=== PATIENT | male | born 1975 | race Caucasian/White ===

== ENCOUNTER 2025-10-09 08:07 | Outpatient (REF) | payer OTHER, SELFPAY ==
[2025-10-09 13:15] LABS: Appearance Urine Turbid; Glucose Urine UA Negative (Negative); PH 5.5 (5.0-9.0); Specific Gravity - Urine >= 1.030 (1.005-1.025)
[2025-10-09 13:19] LABS: MANUAL DIFF FLAG NO
[2025-10-09 13:25] LABS: Hematocrit 40.7 % (42.0-52.0); Hemoglobin 14.1 g/dl (14.0-18.0); Imm Gran Abs Auto 0.05 X10*3/uL (0.00-0.03); Imm Gran Pct Auto 0.4 % (0.0-0.4); Lymphocytes Absolute Auto 2.5 X10*3/uL (1.2-4.9); Mean Corpuscular HGB Conc 34.6 g/dl (31.0-36.0); Mean Corpuscular Hemoglobin 29.2 pg (27.0-33.0); Mean Corpuscular Volume 84.3 fL (80.0-98.0); NRBC Abs Auto 0.000 X10*3/uL (0.0-0.012); NRBC Pct Auto 0.0 /100WBC (0.0-0.2); Platelet Count 278 X10*3/uL (160-400); Red Blood Count 4.83 X10*6/uL (4.60-5.80); White Blood Count 13.7 X10*3/uL (4.8-10.8)
[2025-10-09 13:49] LABS: Alanine Aminotransferase 23 U/L (0-40); Albumin Level 4.9 g/dL (3.5-5.0); Alkaline Phosphatase 53 U/L (39-117); Anion Gap 15 (12-20); Aspartate Amino Transferase 31 U/L (5-37); Blood Urea Nitrogen 17 mg/dL (9-16); Calcium 9.6 mg/dL (8.4-10.2); Carbon Dioxide 28 mmol/L (22-29); Chloride 103 mmol/L (96-108); Cholesterol 212 mg/dL (<200); Estimated Glomerular Filt Rate > 60; HDL Cholesterol 52 mg/dL (>40); Magnesium 2.4 mg/dL (1.6-2.6); Potassium 3.9 mmol/L (3.3-5.1); Sodium 142 mmol/L (135-145); Total Protein 7.9 g/dL (6.5-8.0); Triglycerides 91 mg/dL (<150)
[2025-10-09 14:17] LABS: Folate 7.0 ng/mL (> or = 4.0); Vitamin B12 229 pg/mL (200-900)
[2025-10-10 08:51] LABS: HBS Num1 0.00 mIU/mL (0-7.99); HBsAGNum1 0.70 S/CO (0.00-0.99); HIV Num 1 0.06 S/CO (0.00-0.99); Hepatitis B Surface Antigen Negative (Negative); ~HepC Num1 0.21 S/CO (0.00-0.79); ~Hepatitis B Surface Antibody NONREACTIVE (Nonreactive); ~Hepatitis C Antibody Nonreactive (Nonreactive)
[2025-10-15 05:44] LABS: VITAMIN D (1,25 OH) D3 44 pg/mL; Vit D (1,25-Dihydroxy) Total 44 pg/mL (18-72); Vitamin D (1,25 OH) D2 <8 pg/mL
[2025-10-20 15:49] LABS: Testosterone, Free 35.5 pg/mL (35.0-155.0)
== END 2025-10-09 08:08 | disposition home or self-care (01) ==
LOC: HO.HKASLDS 08:07
PROVIDERS: PCP Student in an Organized Health Care Education/Training Program; Visit Provider Student in an Organized Health Care Education/Training Program
DX: F11.11 Opioid abuse, in remission (principal); R53.83 Other fatigue; G47.00 Insomnia, unspecified; R01.1 Cardiac murmur, unspecified; F41.9 Anxiety disorder, unspecified; F32.A Depression, unspecified; Z91.89 Other specified personal risk factors, not elsewhere classified; Z28.21 Immunization not carried out because of patient refusal
CPT/HCPCS: 36415; 80053; 80061; 81003; 82607; 82652; 82746; 83036; 83735; 84402; 84403; 84443; 85025; 86706; 86803; 87340; 87389

== ENCOUNTER 2025-10-09 08:07 | Outpatient (AMB) | payer OTHER, SELFPAY ==
--- NOTE | 2025-10-09 08:15 | MHC.PC.OV ---
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 Accompanied by: Self / Same As Patient Allergies No Known Allergies Allergy (Verified 10/09/25 08:15) Medication List - Last Reconciled 10/09/25 by Randy Napier MD clonidine HCl 0.1 mg PO BID hydroxyzine HCl 25 mg PO TID ibuprofen 600 mg PO TID methadone 80 mg PO DAILY naloxone 4 mg/actuation intranasal sertraline 75 mg PO DAILY trazodone 100 mg PO BEDTIME PRN Tobacco use date assessed: 10/09/25 Dental Screening Dental Screen Date: 10/09/25 Did you have a dental visit in the last 12 months?: Yes Was dental information given to patient?: Patient has dentist HPI HPI Comments History of Present Illness Details History of Present Illness The patient is a 50 year old individual presenting to counts include 234 beds at the [facility] primary care. Opioid Use Disorder: The patient has a history of fentanyl use and was started on methadone 80 mg approximately six months ago. The patient reports one prior overdose event and possesses naloxone. The methadone initially caused constipation, which has since mostly resolved. Fatigue: The patient reports a lack of energy for the last six to seven months, which coincides with the initiation of methadone treatment. The patient notes being athletic in the past, but no longer feels this way. Psychiatric History: The patient has a psychiatric history of depression and anxiety, managed by a psychiatrist. The patient takes sertraline for depression, and clonidine and hydroxyzine for anxiety. Insomnia: The patient takes trazodone for sleep but reports sleeping for only four or five hours at a time. The patient usually wakes to use the bathroom and then it takes about an hour to fall back asleep. Heart Murmur: The patient has been told about having a heart murmur previously. About five months ago, the patient was seen at a hospital overnight for chest pains, and an echocardiogram at that time was reportedly normal. The patient's father has a history of an aortic aneurysm that required surgical repair and valve replacement. Health Maintenance: The patient is 50 years old and has not had a colonoscopy or other colon cancer screening. The last visit with a primary care provider was three or four years ago. Surgical History: - The patient denies any past surgeries. 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 - Substance Use: The patient denies current use of cigarettes, marijuana, alcohol, or other illicit drugs. - Activity Level: The patient reports being athletic in the past but now experiences a lack of energy. Family History: - Father: History of an aortic aneurysm requiring surgical repair with valve replacement. - Diabetes: There is a family history of diabetes. Diagnostic Results: - Echocardiogram: Reportedly performed at [facility] five months ago for chest pains and was said to be normal. - Physical Exam: A brief physical performed at [facility] reportedly showed nothing wrong. Past Medical History - Opioid use disorder with history of fentanyl use - History of one overdose - Depression - Anxiety - The patient has not seen a primary care provider for three to four years. - Hospitalization for chest pains approximately five months ago. Health Maintenance - Will order a Cologuard test for colon cancer screening, as the patient is 50 and has not been screened. - Ordered comprehensive baseline labs including a complete blood count, comprehensive metabolic panel, hemoglobin A1c, lipid panel, magnesium, thyroid studies, hepatitis B and C, HIV, vitamin B12, folate, and vitamin D. [facility] Medical History (Updated 10/09/25 @ 08:46 by Randy Napier MD) Anxiety and depression Fatigue Methadone use History of drug overdose History of opioid abuse Heart murmur Family History (Updated 10/09/25 @ 08:16 by Kathy Ndiaye CMA) Mother No problems noted. Father No problems noted. Social History Housing: Other Housing Other:: recovery house Patient Tobacco Use Status: Never used Tobacco e-Cigarette/Vaping Use: Never Used service: No Current occupational status: unemployed Cognitive needs: No Hearing needs: No Vision needs: No Questionnaire PHQ-9 Over the last 2 weeks, how often have you been bothered by any of the following problems? 1. Little interest or pleasure in doing things: several days 2. Feeling down, depressed, or hopeless: several days 3. Trouble falling or staying asleep, or sleeping too much: several days 4. Feeling tired or having little energy: several days 5. Poor appetite or overeating: several days 6. Feeling bad about yourself - or that you are a failure or have let yourself or your family down: several days 7. Trouble concentrating on things, such as reading the newspaper or watching television: several days 8. Moving or speaking so slowly that other people could have noticed. Or the opposite - being so fidgety or restless that you have been moving around a lot more than usual: not at all 9. Thoughts that you would be better off or of hurting yourself in some way: not at all Total score: 7 Depression Screening Interpretation: Positive Depression Screening Done: Yes Source: Developed by Drs. Zion Reid, Maribell Eddy, Gopi Hernandez and colleagues, with an educational lalito from [employer]. Thrive Questionnaire Date Thrive assessed: 10/09/25 I am a: Patient What is your living situation today?: I have a place to live, but I am worried about losing it in the future Within the past 12 months, did the food you bought not last and you didn't have the money to get more?: Sometimes True Within the past 12 months, did you worry whether your food would run out before you got money to buy more?: Sometimes True Do you have trouble paying for medicines?: No Do you have trouble getting transportation to medical appointments?: No Do you have trouble paying your heating and electricity bill?: No Do you have trouble taking care of your child, family member or friend?: No Do you have trouble with day-to-day activities such as bathing, preparing meals, shopping, managing finances, etc.?: No Are you currently unemployed and looking for a job?: Yes Are you interested in more education?: No Please select the resources that you would like help with: Housing/Nursing Home Currently or been in a relationship where the following occur: No concerns reported THRIVE Score: 3 AUDIT C Alcohol Use Questionnaire (AUDIT-C) 1. How often do you have a drink containing alcohol?: Monthly or less 2. How many drinks containing alcohol do you have on a typical day when you are drinking?: 1 or 2 Total Score: 1 JAKE-7 AMB Questionnaire JAKE-7 Date JAKE - 7 assessed: 10/09/25 Feeling nervous, anxious, or on edge: 0 = Not at all Not being able to stop or control worryin = Not at all Worrying too much about different things: 0 = Not at all Trouble relaxin = Not at all Being so restless that it is hard to sit still: 0 = Not at all Becoming easily annoyed or irritable: 0 = Not at all Feeling afraid as if something awful might happen: 0 = Not at all Total JAKE-7 score (0-4 normal; 5-9 mild; 10-14 moderate; 15-21 severe): 0 Source: Developed by Drs. Zion Reid, Maribell Eddy, Gopi Hernandez and colleagues, with an educational lalito from [employer]. Review of Systems Narrative Review of Systems - Constitutional: Reports lack of energy for the past 6-7 months. - Cardiovascular: Denies current chest pains, but reports an episode of chest pains 5 months ago. - Psychiatric: Reports history of depression and anxiety. - Neurological: Reports sleep disturbance, gets 4-5 hours of sleep, with nocturia and difficulty returning to sleep. - Gastrointestinal: Denies current constipation but notes it occurred initially with methadone. - Integumentary: Reports having multiple birthmarks all over the body. - All other systems reviewed and are negative. 10-point ROS reviewed and negative except as noted in HPI Physical exam (Primary Care) Vital Signs: Last Vital Signs Temp 98.3 F 10/09/25 08:20 Pulse 69 10/09/25 08:20 BP 127/86 10/09/25 08:20 Pulse Ox 95 10/09/25 08:20 Oxygen Delivery Method Room Air 10/09/25 08:20 BMI result Body Mass Index 29.5 Tobacco/Smoking Status: Tobacco use Status Tobacco use date assessed 10/09/25 10/09/25 08:16 Patient Tobacco Use Status Never used Tobacco 10/09/25 08:16 e-Cigarette/Vaping Use Never Used 10/09/25 08:16 PHQ-9: PHQ-9 Score PHQ-9: Total score 7 10/09/25 08:26 Depression Screening Interpretation: Positive Thrive Assessment: Date of Thrive Assessment Date Thrive assessed 10/09/25 10/09/25 08:16 Currently or been in a relationship where the following occur: No concerns reported Narrative Physical Exam General: Well-appearing, in no acute distress. Vital signs: Within normal limits. HEENT: Normocephalic, atraumatic. PERRLA, EOMI. Conjunctiva clear, sclera anicteric. Oropharynx clear, mucous membranes moist. TMs intact bilaterally. Neck: Supple, no lymphadenopathy, no thyromegaly, no JVD or carotid bruits. Cardiovascular: RRR, normal S1/S2, heart murmur noted. Peripheral pulses 2+ and symmetric. No edema. Respiratory: Lungs clear to auscultation bilaterally, no wheezes, rales, or rhonchi. Normal effort. Abdomen: Soft, non-tender, non-distended. Normoactive bowel sounds. No hepatosplenomegaly, no masses. MSK: Full range of motion, no joint swelling or deformity. Normal gait. Skin: Warm, dry, intact. Multiple birthmarks noted, no rashes, lesions, or pallor. No signs of skin cancer. Neuro: Alert and oriented x3. Cranial nerves II-XII intact. Strength 5/5 throughout. Sensation intact. Reflexes 2+ symmetric. Normal coordination and gait. Psych: Appropriate mood and affect. Normal judgment and insight. Office Procedures Flu Questionnaire Does the patient have a severe egg allergy?: No Does the patient have severe life threatening allergies?: No Does the patient have a fever or illness today?: No Has the patient ever had Guillain-Napoleon Syndrome?: No Has the patient ever had any past reaction to a flu shot?: No Immunizations Fluarix [id number] (PF) 45 mcg (15 mcg x 3)/0.5 mL IM syringe Performing Provider: Randy Napier MD Performing Location: [facility] Documented (not given) by: Kathy Ndiaye CMA on 10/09/25 08:29 Reason Not Given: Patient Refused Coding Level of Care Code New Pt Level 4 (86690) Diagnoses Heart murmur R01.1 History of opioid abuse F11.11 History of drug overdose Z91.89 Methadone use F11.90 Fatigue R53.83 Anxiety and depression F41.9; F32.A Assessment & Plan Assessment & Plan (1) Heart murmur: Code(s): R01.1 - Cardiac murmur, unspecified Category: Medical (2) History of opioid abuse: Code(s): F11.11 - Opioid abuse, in remission Category: Medical (3) History of drug overdose: Code(s): Z91.89 - Other specified personal risk factors, not elsewhere classified Category: Medical (4) Methadone use: Code(s): F11.90 - Opioid use, unspecified, uncomplicated Category: Medical (5) Fatigue: Code(s): R53.83 - Other fatigue Category: Medical (6) Anxiety and depression: Code(s): F41.9 - Anxiety disorder, unspecified; F32.A - Depression, unspecified Category: Medical Plan Consent The options for colon cancer screening were discussed with the patient, including a colonoscopy which involves a bowel prep and sedation, versus a Cologuard test which is a non-invasive stool-based test performed at home and is valid for three years. The patient provided verbal consent to proceed with the Cologuard test. Patient was informed and verbally consented to the use of an ambient scribe for clinic note documentation during this visit. Plan 1. Fatigue - To evaluate the patient's complaint of lack of energy, which started around the same time as methadone initiation, testosterone levels will be checked, as methadone can lower testosterone. - The ordered baseline labs will also help investigate other potential causes such as anemia or vitamin deficiencies. 2. Heart Murmur - Due to the finding of a heart murmur on exam and a family history of aortic aneurysm, an order for an echocardiogram will be placed. - A referral to cardiology will be considered pending the results of the echocardiogram. 3. Opioid Use Disorder, Depression, And Anxiety - The patient will continue the current medication regimen, which includes methadone, sertraline, clonidine, and hydroxyzine, as prescribed by the patient's psychiatrist. - Advised the patient to inform the psychiatrist of the new primary care relationship to facilitate communication. 4. Follow-Up - The patient will follow up in two weeks to discuss the results of the lab work and Cologuard test. Discussion Notes I had a detailed discussion with the patient about an initial health evaluation and establishing care. We reviewed the patient's current medications and history, noting the complaint of fatigue that began around the same time as methadone initiation. I explained that methadone can lower testosterone levels and that we would order lab work, including a testosterone level, to investigate this and other potential causes. I informed the patient of a newly discovered heart murmur and the importance of further evaluation with an echocardiogram, especially given the family history of an aortic aneurysm. We also discussed preventative health, specifically colon cancer screening for a 50-year-old. I explained the options of a colonoscopy versus a Cologuard test, and the patient opted for the Cologuard test. Regarding the multiple nevi, I explained the ugly duckling sign and provided reassurance that they currently appear benign and uniform, while also educating the patient on what to monitor for. A plan was established for comprehensive lab work and a follow-up visit in two weeks to review all results. Patient Instructions - You can have your blood work done here in the clinic today. - You will receive a Cologuard kit in the mail. Please follow the instructions to collect a stool sample and mail it back. - Someone from [facility] will call you to schedule an echocardiogram (a test to look at your heart). - Please let your psychiatrist know that I am your new primary care doctor so we can coordinate your care. - Keep an eye on the birthmarks on your skin. Look for any that look different from the others, as this could be a sign of a problem. - Please schedule a follow-up appointment in two weeks to go over your test results. Medical Decision Making The patient is a 50-year-old individual presenting to counts include 234 beds at the [facility] care with a complex medical and psychiatric history. The primary active complaints are fatigue and sleep disturbance. The fatigue, which began concurrently with methadone treatment six months ago, raises suspicion for medication side effects, specifically hypogonadism, as methadone is known to lower testosterone levels. A comprehensive lab panel, including testosterone, CBC, CMP, and vitamin levels, was ordered to evaluate for this and other common etiologies of fatigue like anemia or nutritional deficiencies. The most significant new finding on physical exam is a heart murmur. Given the patient's paternal history of an aortic aneurysm requiring surgical repair and the patient's own history of chest pain, further cardiac evaluation is warranted. An echocardiogram was ordered to assess cardiac structure and function and rule out significant valvulopathy or other abnormalities; a cardiology consultation will be considered based on these results. For health maintenance, the patient is due for colon cancer screening. After discussing the risks and benefits of both colonoscopy and a stool-based test, the patient elected to proceed with Cologuard. The patient's psychiatric conditions are managed by a psychiatrist, and care will be coordinated with that provider. A follow-up visit is scheduled in two weeks to review all diagnostic findings and formulate a continuing plan of care. Total Time Statement 30 min Total time spent caring for the patient today includes pre-visit chart review, documentation, review of laboratory and diagnostic imaging results, medication reconciliation, medically necessary evaluation, counseling on diagnoses, care coordination, ordering appropriate tests and medications, review of tests performed by other providers, reporting test results to the patient, and communication with other healthcare providers. Orders: Orders Influenza [id number] Immunization Today Z23 - Encounter for immunization Complete Blood Count Auto Diff Today Z13.9 - Encounter for screening, unspecified Hepatitis B Surface Antigen Today Z13.9 - Encounter for screening, unspecified HIV Ab/Ag Today Z13.9 - Encounter for screening, unspecified UA CC w/rflx Micro + Cult Today Z13.9 - Encounter for screening, unspecified Lipid Panel Today Z13.9 - Encounter for screening, unspecified Hemoglobin A1c Today Z13.9 - Encounter for screening, unspecified Magnesium Today Z13.9 - Encounter for screening, unspecified Comprehensive Met. Panel Today Z13.9 - Encounter for screening, unspecified Hepatitis C Antibody Today Z13.9 - Encounter for screening, unspecified TSH reflex Free T4 Today Z13.9 - Encounter for screening, unspecified Vitamin B12 and Folate Today Z13.9 - Encounter for screening, unspecified Vitamin D 1,25 dihydroxy Today Z13.9 - Encounter for screening, unspecified Hepatitis B Surface Antibody Today Z13.9 - Encounter for screening, unspecified Testosterone, Free/Total Today Z13.9 - Encounter for screening, unspecified CA echo transthoracic complete Today R01.1 - Cardiac murmur, unspecified Referrals Cologuard Test Z12.11 - Encounter for screening for malignant neoplasm of colon, Z12.12 - Encounter for screening for malignant neoplasm of rectum
[2025-10-09 08:20] VITALS: BP 127/86; PULSE 69; TEMP 36.8; O2SAT 95; BMI 29.5
== END 2025-10-09 08:46 | disposition home or self-care (01) ==
LOC: HO.HMCFMS 08:07
PROVIDERS: PCP Family Medicine; Visit Provider Student in an Organized Health Care Education/Training Program
DX: R01.1 Cardiac murmur, unspecified (principal); F11.11 Opioid abuse, in remission; Z91.89 Other specified personal risk factors, not elsewhere classified; F11.90 Opioid use, unspecified, uncomplicated; R53.83 Other fatigue; F41.9 Anxiety disorder, unspecified; F32.A Depression, unspecified; Z23 Encounter for immunization

== ENCOUNTER 2025-10-27 08:22 | Outpatient (AMB) | payer OTHER, SELFPAY ==
[2025-10-27 08:43] VITALS: BP 119/71; PULSE 50; RESP 16; TEMP 37.3; O2SAT 96; BMI 29.3
--- NOTE | 2025-10-27 08:43 | A.OFFPC_ITS ---
Vital Signs 10/27/25 08:43 Height 5 ft 10.35 in Weight 206 lb 6 oz BMI 29.3 BP 119/71 Blood Pressure Location Rt brachial Position Sitting Respiration 16 Pulse 50 Pulse Source Pulse Oximeter Temp 99.1 F Temp Source Oral Pulse Oximetry (%) 96 Oxygen Delivery Method Room Air Intake Visit Reasons: 2 wk - lab review Allergies No Known Allergies Allergy (Verified 10/27/25 08:45) Medication List - Last Reconciled 10/27/25 by Randy Napier MD clonidine HCl 0.1 mg PO BID hydroxyzine HCl 25 mg PO TID ibuprofen 600 mg PO TID mecobalamin (vitamin B12) 1,000 mcg sublingual BEDTIME methadone 80 mg PO DAILY naloxone 4 mg/actuation intranasal sertraline 75 mg PO DAILY trazodone 100 mg PO BEDTIME PRN Tobacco use date assessed: 10/27/25 Dental Screening Dental Screen Date: 10/09/25 HPI HPI Comments History of Present Illness Details History of Present Illness The patient is a 50 year old male presenting for a follow-up visit to discuss laboratory results. Vitamin B12 deficiency: The patient's recent lab results show a vitamin B12 level of 229, which is at the low end of the normal range of 200-700. This is thought to be the cause of his symptoms of fatigue and tiredness. His diet is noted to be low in green vegetables which may contribute to his low B12 level. Hypercholesterolemia: A non-fasting lipid panel revealed a total cholesterol of 212 mg/dL (normal <200) and an LDL cholesterol of 142 mg/dL (normal <100). The patient's diet reportedly includes egg yolks and cheese, which may contribute to elevated cholesterol levels. Heart murmur: The patient has a previously identified heart murmur and has an echocardiogram scheduled for November 18 to further evaluate it. Colon cancer screening: The patient has been provided a Cologuard test kit for colorectal cancer screening, which he has at home but has not yet completed and mailed back. Social History: - Nutrition: The patient reports a low i ntake of green vegetables like broccoli, spinach, and kale. - He also reports eating foods that can elevate cholesterol, such as egg yolks and cheese. Diagnostic Results: - Labs: - Vitamin B12: 229 (normal range 200-700 ) - Total Cholesterol (non-fasting): 212 m g/dL (target <200) - LDL Cholesterol (non-fasting): 142 mg/ dL (target <100) Past Medical History - Heart murmur Health Maintenance - The Cologuard test for colorectal canc er screening was sent to the patient's home. - The patient was advised to complete an d mail the Cologuard kit. [facility] Medical History (Updated 10/27/25 @ 18:34 by Randy Napier MD) Hypercholesterolemia Low vitamin B12 level Anxiety and depression Fatigue Methadone use History of drug overdose History of opioid abuse Heart murmur Family History (Updated 10/09/25 @ 08:16 by Kathy Ndiaye CMA) Mother No problems noted. Father No problems noted. Social History Housing: Other Housing Other:: recovery house Patient Tobacco Use Status: Never used Tobacco e-Cigarette/Vaping Use: Never Used service: No Current occupational status: unemployed Cognitive needs: No Hearing needs: No Vision needs: No Questionnaire Thrive Questionnaire Date Thrive assessed: 09/21/25 I am a: Patient What is your living situation today?: I have a place to live, but I am worried about losing it in the future Within the past 12 months, did the food you bought not last and you didn't have the money to get more?: Sometimes True Within the past 12 months, did you worry whether your food would run out before you got money to buy more?: Sometimes True Do you have trouble paying for medicines?: No Do you have trouble getting transportation to medical appointments?: No Do you have trouble paying your heating and electricity bill?: No Do you have trouble taking care of your child, family member or friend?: No Do you have trouble with day-to-day activities such as bathing, preparing meals, shopping, managing finances, etc.?: No Are you currently unemployed and looking for a job?: Yes Are you interested in more education?: No Please select the resources that you would like help with: Housing/Fdc Currently or been in a relationship where the following occur: No concerns reported THRIVE Score: 3 JAKE-7 AMB Questionnaire JAKE-7 Date JAKE - 7 assessed: 10/09/25 Source: Developed by Drs. Zion Reid, Maribell Eddy, Gopi Hernandez and colleagues, with an educational lalito from [employer]. Review of Systems Narrative Review of Systems - General: Reports fatigue and tiredness. 10-point ROS reviewed and negative except as noted in HPI Physical exam (Primary Care) Vital Signs: Last Vital Signs Temp 99.1 F 10/27/25 08:43 Pulse 50 10/27/25 08:43 Resp 16 10/27/25 08:43 BP 119/71 10/27/25 08:43 Pulse Ox 96 10/27/25 08:43 Oxygen Delivery Method Room Air 10/27/25 08:43 BMI result Body Mass Index 29.3 Tobacco/Smoking Status: Tobacco use Status Tobacco use date assessed 10/27/25 10/27/25 08:48 Patient Tobacco Use Status Never used Tobacco 10/27/25 08:48 e-Cigarette/Vaping Use Never Used 10/27/25 08:48 Thrive Assessment: Date of Thrive Assessment Date Thrive assessed 09/21/25 10/27/25 08:48 Currently or been in a relationship where the following occur: No concerns reported Narrative Physical Exam General: Well-appearing, in no acute distress. Vital signs: Within normal limits. HEENT: Normocephalic, atraumatic. PERRLA, EOMI. Conjunctiva clear, sclera anicteric. Oropharynx clear, mucous membranes moist. TMs intact bilaterally. Neck: Supple, no lymphadenopathy, no thyromegaly, no JVD or carotid bruits. Cardiovascular: RRR, normal S1/S2, no murmurs, rubs, or gallops. Peripheral pulses 2+ and symmetric. No edema. Scheduled for an echocardiogram for a heart murmur on November 18. Respiratory: Lungs clear to auscultation bilaterally, no wheezes, rales, or rhonchi. Normal effort. Abdomen: Soft, non-tender, non-distended. Normoactive bowel sounds. No hepatosplenomegaly, no masses. MSK: Full range of motion, no joint swelling or deformity. Normal gait. Skin: Warm, dry, intact. No rashes, lesions, or pallor. Neuro: Alert and oriented x3. Cranial nerves II-XII intact. Strength 5/5 throughout. Sensation intact. Reflexes 2+ symmetric. Normal coordination and gait. Psych: Appropriate mood and affect. Normal judgment and insight. Coding Level of Care Code Est Pt Level 3 (31507) Diagnoses Low vitamin B12 level R79.89 Hypercholesterolemia E78.00 Heart murmur R01.1 Fatigue R53.83 Assessment & Plan Assessment & Plan (1) Low vitamin B12 level: Code(s): R79.89 - Other specified abnormal findings of blood chemistry Category: Medical (2) Hypercholesterolemia: Code(s): E78.00 - Pure hypercholesterolemia, unspecified Category: Medical (3) Heart murmur: Code(s): R01.1 - Cardiac murmur, unspecified Category: Medical (4) Fatigue: Code(s): R53.83 - Other fatigue Category: Medical Plan Consent Patient was informed and verbally consented to the use of an ambient scribe for clinic note documentation during this visit. Plan 1. Vitamin B12 Deficiency - The patient's fatigue is attributed to his low vitamin B12 level of 229. - A prescription for vitamin B12 supplementation to be taken nightly has been sent. - Dietary counseling was provided to increase intake of green vegetables like broccoli, spinach, and kale to naturally boost B12 levels. - Plan to recheck vitamin B12 level in three months. 2. Hypercholesterolemia - The patient's non-fasting total cholesterol was 212 and LDL was 142. - It is noted that the non-fasting status likely means his actual values are lower, so there is no immediate concern. - Dietary modification was recommended, specifically reducing consumption of egg yolks and cheese. 3. Heart Murmur - The patient has an echocardiogram scheduled for November 18 for further evaluation. 4. Colon Cancer Screening - Instructed the patient to complete and mail in the at-home Cologuard test kit that was previously sent to him. Discussion Notes I reviewed the patient's recent lab results with him. I explained that his vitamin B12 level is low at 229, and is the likely cause for his reported fatigue. I have sent a prescription for vitamin B12 and advised him to increase his intake of green vegetables. We will recheck his levels in three months. We also discussed his non-fasting cholesterol results, noting his total cholesterol was 212 and LDL was 142. I explained that these values are likely inflated due to the non-fasting state but recommended he reduce his intake of egg yolks and cheese. I reminded him to complete and mail the Cologuard test for colon cancer screening. We confirmed his upcoming echocardiogram appointment on November 18 for his heart murmur. I will see him back in three months for a follow-up. Patient Instructions - Take the prescribed vitamin B12 supplement every night. - Increase your dietary intake of green vegetables such as broccoli, spinach, and kale. - Reduce your consumption of foods high in cholesterol, like egg yolks and cheese. - Complete the Cologuard test from the kit at your house and mail it back as soon as possible. - Attend your scheduled echocardiogram appointment on November 18. - Schedule a follow-up appointment in three months to recheck your lab work. Medical Decision Making The patient, a 50-year-old male, presented to review recent lab results. His primary complaint of fatigue is likely explained by his low-normal vitamin B12 level of 229. I have initiated daily vitamin B12 supplementation and recommended dietary changes to include more green vegetables, with a plan to re-evaluate his B12 level in three months. His non-fasting lipid panel showed a total cholesterol of 212 and LDL of 142. Given the non-fasting state of the sample, I am not concerned at this time and believe his actual values are likely lower. Management will focus on dietary modifications to reduce cholesterol intake, such as limiting egg yolks and cheese. Preventative care was addressed by reminding the patient to complete his Cologuard test. Follow-up for his known heart murmur will proceed with the scheduled echocardiogram. A follow-up visit in three months will serve to reassess his B12 status and overall progress. Total Time Statement 20 min Total time spent caring for the patient today includes pre-visit chart review, documentation, review of laboratory and diagnostic imaging results, medication reconciliation, medically necessary evaluation, counseling on diagnoses, care coordination, ordering appropriate tests and medications, review of tests performed by other providers, reporting test results to the patient, and communication with other healthcare providers. Medications: New mecobalamin (vitamin B12) place tablet under tongue and allow to dissolve for at least30 secs before swallowing 1,000 mcg sublingual BEDTIME 90 tabs 0RF
== END 2025-10-27 08:58 | disposition home or self-care (01) ==
LOC: HO.HMCFMS 08:23
PROVIDERS: PCP Family Medicine; Visit Provider Student in an Organized Health Care Education/Training Program
DX: R79.89 Other specified abnormal findings of blood chemistry (principal); E78.00 Pure hypercholesterolemia, unspecified; R01.1 Cardiac murmur, unspecified; R53.83 Other fatigue

== ENCOUNTER → 2025-10-27 08:22 | Outpatient (BNVA) | payer OTHER, SELFPAY | PROVIDERS: PCP Family Medicine; Visit Provider Student in an Organized Health Care Education/Training Program | DX: R79.89 Other specified abnormal findings of blood chemistry (principal); E78.00 Pure hypercholesterolemia, unspecified; R01.1 Cardiac murmur, unspecified; R53.83 Other fatigue | CPT/HCPCS: 99212 ==

== ENCOUNTER → 2025-11-17 10:57 | Outpatient (REF) | payer OTHER, SELFPAY ==
--- NOTE | 2025-11-17 11:00 | CA_ITS ---
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 The visually estimated ejection fraction is between 60-65%. - There is a bicuspid aortic valve. There is moderate calcification of the aortic valve. Early aortic stenosis. - There is mild dilatation of the sinuses of Valsalva measuring 4.48 cm, severe dilatation of the ascending aorta measuring 5.80 cm, and mild dilatation of the aortic arch measuring 4.30 cm. Findings Procedure Information Contrast agent, definity, is being given per protocol without apparent complications. Left Ventricle Normal left ventricular cavity size. The left ventricular systolic function is normal. The visually estimated ejection fraction is between 60-65%. There is no evidence of regional wall motion abnormalities. Diastolic function is normal for age. There is mild septal asymmetric hypertrophy. Right Ventricle Mildly increased right ventricular cavity size. There is normal right ventricular systolic function. Atria Both atria are normal in size. Aortic Valve There is a bicuspid aortic valve. There is moderate calcification of the aortic valve. There is no aortic valve regurgitation. Early aortic stenosis. Mitral Valve The mitral valve appears normal. There is no mitral valve regurgitation. There is no mitral valve stenosis. Pulmonic Valve The pulmonic valve is likely normal. Tricuspid Valve There is trace tricuspid valve regurgitation. Tricuspid regurgitation envelope is inadequate for calculation of right ventricular systolic pressure. Great Vessels There is mild dilatation of the sinuses of Valsalva measuring 4.48 cm, severe dilatation of the ascending aorta measuring 5.80 cm, and mild dilatation of the aortic arch measuring 4.30 cm. Venous The inferior vena cava is normal in size and collapses greater than 50% with inspiration. Pericardium/Pleural There is no evidence of pericardial effusion. Prior Study Comparison No prior study available for comparison. Measurements 2D Linear Measurements IVSd: 1.26 0.6-0.9/0.6-1.0 cm LVIDd: 3.77 3.9-5.3/4.2-5.9 cm LVIDd Index: 1.79 2.4-3.2/2.2-3.1 cm/m2 LVIDs: 2.86 2.0-3.6 cm LVPWd: 0.98 0.7-1.1 cm LA Diam: 3.20 2.7-3.8/3.0-4.0 cm LAIDs Index: 1.52 1.5-2.3 cm/m2 LV Mass: 170.38 67-162/88-224 g LV Mass Index: 80.75 43-95/49-115 g/m2 LVOT Diam: 2.30 3.0+(-)1.3 cm 2D Systolic Function EF 4C: 71.80 >55% EF 2C: 69.00 >55% EF BiP: 71.30 >55% Mitral Valve MV Pk E: 0.63 MV PK A: 0.79 MV Decel Time: 336.00 E/A: 0.80 E'Lateral: 13.80 E'Medial: 11.90 E/E' Med: 5.30 E/E' Lat: 4.60 PHT: 98.00 MVA PHT: 2.24 Decel [place]: 1.89 Aortic Valve AoV Pk Brody: 1.99 AoV Mn Brody: 1.49 AoV VTI: 0.41 AoV Pk Grad: 16.00 Aov Mn Grad: 10.00 CHADD Cont.VTI: 2.03 LVOT LVOT Pk Brody: 0.93 LVOT Mn Brody: 0.69 LVOT VTI: 0.20 LVOT Pk Grad: 3.00 LVOT Mn Grad: 2.00 LVOT Diam: 2.30 LVOT Area: 4.15 Diastolic Function MV Pk E: 0.63 MV Pk A: 0.79 E/A: 0.80 E'Medial: 11.90 E/E' Med: 5.30 E' Laterial: 13.80 E/E' Lat: 4.60 Right Ventricle TAPSE (mm): 24.80 TVS' Brody: 15.80 Tricuspid Valve RA Press: 3.00 Great Vessels Aorta Sinus of Valsalva: 4.48 2.0-3.[address] [place]: 3.77 1.7-3.4 cm Ao Asc: 5.80 2.1-3.4 cm Ao Arch: 4.30 Updated in Other Vendor System with Status of Final Glynn Weinstein MD electronically signed on 11/17/2025 1:50:34 PM with status of Final
== END ==
LOC: HO.CARD 10:57
PROVIDERS: PCP Family Medicine; Visit Provider Student in an Organized Health Care Education/Training Program
DX: R01.1 Cardiac murmur, unspecified (principal)
CPT/HCPCS: 93306; Q9957

== ENCOUNTER → 2025-11-17 11:00 | Outpatient (BNV) | payer OTHER, SELFPAY | PROVIDERS: PCP Family Medicine; Visit Provider Internal Medicine | DX: I35.0 Nonrheumatic aortic (valve) stenosis (principal); I77.810 Thoracic aortic ectasia; Q23.81 Bicuspid aortic valve | CPT/HCPCS: 93306 ==